=== PATIENT | female | born 1950 | race Caucasian/White ===

== ENCOUNTER 2020-05-08 10:32 | Outpatient (RCR) | payer MEDICARE, OTHER, SELFPAY ==
--- NOTE | 2020-05-08 11:35 | PTOPEVAL ---
Thank you for referring Lorraine Garduno to [facility].? The patient is scheduled to be seen for therapy? ____x/week for ___ weeks. Please review, sign, date and return this plan of care LAURITA. I agree with and certify that the following plan of care is medically necessary. Referring Physician Date Admitting Provider: Attending Provider: PHYSICIAN NOT ON STAFF Referring Provider: *PT Outpatient Evaluation Start: 05/08/20 10:59 Freq: Status: Active Protocol: Document 05/08/20 11:00 [place] (Rec: 05/08/20 11:33 [facility] [id number]) Therapy Assessment Status Assessment Status Assessment Status Evaluation Evaluation Information Problem Diagnosis R hip pain, gait abnormality Onset 04/22/20 Subjective Information patient reports she fell at Query Text:As Reported By Patient/ home while outside. she Family reports she broke her R hip and L shoulder. 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 she reports she had to have surgery to put in a new prosthetic for the R hip. she reports she is WBAT on the R hip currently. she reports she went to [facility] initially then to [facility] for her operation. she reports she had her operation in the middle of last week. she reports she did some therapy in the hospital initially. patient reports she is living at home with her daughter and other family members. patient reports she is getting around decent at home. she reports she has the most pain and difficulty with walking and bearing weight through her R LE. she reports she requires assist for getting dressing, hygeine, bathing. she reports she is also reliant on family for meal preperation. Prior Level of Function Comments Additional Prior Level of Function prior to fall, patient reports Comments she was using on AD consistently. she reports she would use a cane ocassionally
--- NOTE | 2020-06-05 16:36 | PTOPEVAL ---
Thank you for referring Lorraine Garduno to [facility].? The patient is scheduled to be seen for therapy? ____x/week for ___ weeks. Please review, sign, date and return this plan of care LAURITA. I agree with and certify that the following plan of care is medically necessary. Referring Physician Date Admitting Provider: Attending Provider: PHYSICIAN NOT ON STAFF Referring Provider: *PT Outpatient Evaluation Start: 05/08/20 10:59 Freq: Status: Active Protocol: Document 06/05/20 11:00 [place] (Rec: 06/05/20 16:34 [facility] [id number]) Therapy Assessment Status Assessment Status Assessment Status Re-evaluation Evaluation Information Problem Diagnosis R hip pain, gait abnormality Subjective Information patient reports her R hip is Query Text:As Reported By Patient/ feeling better. she reports Family she still has a goal to get rid of her walker and return to walking without an AD. she reports she still is weak in the R hip. Pain Assessment Timing of Pain Assessment Timing of Pain Assessment Assessment Pain Scale Pain Scale Used Numeric (1 - 10) Self Report Pain Assessment Right Hip(s) Reported Pain Level 3 Pain Score Pain Score 3: Self Report Lower Extremity Range of Motion Hip Range of Motion Right Hip Flexion Range of Motion - Active 90 Lower Extremity Muscle Strength Testing Hip Strength Right Hip Flexion Strength 4- Good - Hip Extension Strength 4- Good - Hip Abduction Strength 4- Good - Left Hip Flexion Strength 4+ Good + Hip Extension Strength 4+ Good + Hip Abduction Strength 4 Good Knee Strength Right Knee Flexion Strength 4+ Good + Knee Extension Strength 4 Good Left Knee Flexion Strength 5 Normal Knee Extension Strength 5 Normal Gait Assessment Gait Assessment Additional Ambulation Comments patient ambulates with a wheeled walker majority of the time with full weight bearing on the R LE and step through bilateral mechanics. during ambulation with cane, patient ambulats with cane in the L UE and step through bilateral LE mechanics. however, discontinuous steps and decreased terminal stance/toe off of the R LE. Stair Climbing Assessment Stair Climbing Assessment Stair Climbing Comments marked time mechanics up and
--- NOTE | 2020-08-13 13:10 | PCPTNOTE ---
08/13/20 - patient has not been to therapy in over a month. she has been called and no visits have been scheduled to finish out her poc. as of this date, she will be DC'd and all progress towards goals will be taken from her most recent evaluation/note.
== END 2020-07-03 23:59 | disposition home or self-care (01) ==
LOC: CHSPT 10:32
PROVIDERS: PCP Family Medicine
DX: M25.551 Pain in right hip (principal); R26.9 Unspecified abnormalities of gait and mobility
CPT/HCPCS: 97110; 97140; 97161; 97530